=== PATIENT | male | born 1960 | race Caucasian/White ===

== ENCOUNTER 2019-02-15 18:45 | Emergency (ER) | payer OTHER ==
[2019-02-15] MEDS ORDERED: PROPARACAINE HCL 0.5% 15 ML OPHTHALMIC SOLUTION OU ONE (20:30)
[2019-02-15] MEDS ORDERED: FLUORESCEIN SODIUM 1 MG STRIP OS ONE (21:00)
[2019-02-15] MEDS ORDERED: FLUORESCEIN SODIUM 1 MG STRIP OD ONE (21:00)
[2019-02-15 21:42] VITALS: BP 139/81
== END 2019-02-15 22:17 | disposition home or self-care (01) ==
LOC: EMS 18:47
DX: H57.89 Other specified disorders of eye and adnexa (principal)

== ENCOUNTER 2024-05-24 05:22 | Emergency (ER) | payer OTHER ==
[~2024-05-24] VITALS: Ht 165.1 cm; Wt 104.5 kg
[2024-05-24] MEDS ORDERED: ACET-66 PO (06:01)
[2024-05-24] MEDS ORDERED: TAMS0.4C94 PO (06:01)
[2024-05-24] MEDS ORDERED: CEPH-558 PO (06:01)
[2024-05-24 06:15] LABS: BASOPHILS % (AUTO) 0.2 % (0.0-2.0); EOSINOPHILS % (AUTO) 0.1 % (1.0-6.0); HEMATOCRIT 42.1 % (41-53); HEMOGLOBIN 14.2 g/dL (13.5-17.5); LYMPHOCYTES # (AUTO) 1.2 K/uL (1.0-4.8); LYMPHOCYTES % (AUTO) 6.2 % (22.0-44.0); MEAN CORPUSCULAR HEMOGLOBIN 31.5 pg (26.0-34.0); MEAN CORPUSCULAR HGB CONC 33.6 G/dL (31.0-37.0); MEAN CORPUSCULAR VOLUME 94 fL (80-100); MONOCYTES # (AUTO) 0.9 K/uL (0.1-1.0); NEUTROPHILS # (AUTO) 16.7 K/uL (1.8-7.7); PLATELET COUNT (AUTO) 170 K/uL (150-450); RED BLOOD CELL COUNT(AUTO) 4.49 MIL/uL (4.50-5.90); RED CELL DISTRIBUTION WIDTH 13.3 % (11.5-14.5); WHITE BLOOD COUNT (AUTO) 18.9 K/uL (4.5-11.0)
[2024-05-24 06:25] LABS: NEUTROPHILS % (AUTO) 88.5 % (40.0-70.0)
[2024-05-24 06:32] LABS: ANION GAP 11 mmol/L (8-16); CARBON DIOXIDE 24 mmol/L (22-29); CHLORIDE 96 mmol/L (98-107); CREATININE 0.83 mg/dL (0.60-1.30); GLOMERULAR FILTR. RATE CALC > 60 mL/min (>60); GLUCOSE,RANDOM 124 mg/dL (70-110); POTASSIUM 3.1 mmol/L (3.5-5.1); SODIUM SERUM 131 mmol/L (136-145); UREA NITROGEN, BLOOD 12 mg/dL (7-18)
[2024-05-24 06:54] LABS: APPEARANCE,URINE CLEAR (CLEAR); BILIRUBIN,URINE NEGATIVE (NEGATIVE); COLOR,URINE LIGHT YELLOW (YELLOW); GLUCOSE, URINE (UA) NEGATIVE (NEGATIVE); KETONES,URINE NEGATIVE (NEGATIVE); LEUKOCYTE ESTERASE ,URINE SMALL (NEGATIVE); NITRATE,URINE NEGATIVE (NEGATIVE); OCCULT BLOOD,URINE LARGE (NEGATIVE); PROTEIN,URINE TRACE mg/dL (NEGATIVE); SPECIFIC GRAVITIY, URINE 1.012 (1.003-1.030); UROBILINOGEN,URINE <=1.0 mg/dL (<=1.0)
[2024-05-24] MEDS: POTASSIUM CHLORIDE 20 MEQ ER TABLET PO ONE (07:24)
[2024-05-24] MEDS: TAMSULOSIN HCL 0.4 MG CAPSULE PO ONE (07:38)
[2024-05-24 07:54] LABS: RBC,URINE 26-50 /HPF (0-2)
[2024-05-24 07:55] LABS: BACTERIA,URINE Moderate /HPF (None Seen)
[2024-05-24 08:44] VITALS: BP 110/79; PULSE 112; RESP 20; TEMP 97.9; O2SAT 95
== END 2024-05-24 09:04 | disposition home or self-care (01) ==
LOC: EMS 05:22
DX: N39.0 Urinary tract infection, site not specified (principal); N40.1 Benign prostatic hyperplasia with lower urinary tract symptoms; Z98.890 Other specified postprocedural states
CPT/HCPCS: 51702; 80048; 81001; 85025; 87086; 99284